=== PATIENT | female | born 1940 | race Native Hawaiian/Other Pacific Islander ===

== ENCOUNTER 2018-04-19 17:42 | Emergency (ER) | payer OTHER ==
[~2018-04-19] VITALS: Ht 160 cm; Wt 63.5 kg
[2018-04-19] MEDS ORDERED: LOVASTATIN20 MG PO (18:12)
[2018-04-19] MEDS ORDERED: LEVO0.0529 PO (18:13)
[2018-04-19 19:40] VITALS: BP 126/70; TEMP 97.9
== END 2018-04-19 19:40 | disposition home or self-care (01) ==
LOC: ED 17:42
DX: I10 Essential (primary) hypertension (principal); F41.8 Other specified anxiety disorders
CPT/HCPCS: 99284